=== PATIENT | female | born 1960 | race Caucasian/White ===

== ENCOUNTER → 2017-08-21 | Outpatient (CLI) | payer OTHER ==
[2017-08-21 11:03] LABS: THYROID STIMULATING HORMONE < 0.015 uIU/mL (0.465-4.680)
== END ==
LOC: COL.LAB 09:22
PROVIDERS: Otolaryngology
DX: E05.90 Thyrotoxicosis, unspecified without thyrotoxic crisis or storm (principal)

== ENCOUNTER → 2017-09-28 | Outpatient (CLI) | payer OTHER ==
[2017-09-28 10:14] LABS: THYROID STIMULATING HORMONE < 0.015 uIU/mL (0.465-4.680)
== END ==
LOC: COL.LAB 08:51
PROVIDERS: Otolaryngology
DX: E05.00 Thyrotoxicosis with diffuse goiter without thyrotoxic crisis or storm (principal)

== ENCOUNTER → 2017-10-15 | Outpatient (REF) ==
[2017-10-15 17:01] LABS: ALBUMIN 4.2 gm/dL (3.5-5.0); PHOSPHOROUS 4.3 mg/dL (2.5-4.5)
== END ==
LOC: ZLAB.WCH 16:46
PROVIDERS: Otolaryngology
DX: Z01.89 Encounter for other specified special examinations (principal)

== ENCOUNTER → 2017-10-16 | Outpatient (REF) ==
[2017-10-16 15:31] LABS: ALBUMIN 3.8 gm/dL (3.5-5.0); PHOSPHOROUS 3.3 mg/dL (2.5-4.5)
== END ==
LOC: ZMSC 15:13
DX: Z01.89 Encounter for other specified special examinations (principal)

== ENCOUNTER → 2017-10-16 | Outpatient (REF) ==
[2017-10-16 06:17] LABS: ALBUMIN 3.6 gm/dL (3.5-5.0); CALCIUM 9.2 mg/dL (8.4-10.2); PHOSPHOROUS 4.4 mg/dL (2.5-4.5)
== END ==
LOC: ZMSC 06:02
PROVIDERS: Otolaryngology
DX: Z01.89 Encounter for other specified special examinations (principal)

== ENCOUNTER → 2017-11-13 | Outpatient (CLI) | payer OTHER | LOC: COL.LAB 08:13 | DX: E05.00 Thyrotoxicosis with diffuse goiter without thyrotoxic crisis or storm (principal) ==

== ENCOUNTER → 2017-12-11 | Outpatient (CLI) | payer OTHER | LOC: COL.LAB 07:57 | DX: E05.00 Thyrotoxicosis with diffuse goiter without thyrotoxic crisis or storm (principal) ==

== ENCOUNTER → 2018-04-14 | Outpatient (CLI) | payer OTHER ==
[2018-04-14 09:36] LABS: ALBUMIN 4.3 gm/dL (3.5-5.0); CALCIUM 9.6 mg/dL (8.4-10.2)
[2018-04-14 10:07] LABS: THYROID STIMULATING HORMONE 13.9 uIU/mL (0.465-4.680)
== END ==
LOC: COL.LAB 08:42
PROVIDERS: Otolaryngology
DX: E05.00 Thyrotoxicosis with diffuse goiter without thyrotoxic crisis or storm (principal)

== ENCOUNTER → 2018-05-17 | Outpatient (CLI) | payer OTHER | LOC: COL.LAB 08:38 | DX: E05.00 Thyrotoxicosis with diffuse goiter without thyrotoxic crisis or storm (principal) ==

== ENCOUNTER → 2019-04-05 | Outpatient (CLI) | payer OTHER | LOC: COL.LAB 08:34 | DX: E05.00 Thyrotoxicosis with diffuse goiter without thyrotoxic crisis or storm (principal) ==

== ENCOUNTER → 2020-04-26 | Outpatient (CLI) | payer OTHER | LOC: COL.LAB 09:56 | DX: E05.00 Thyrotoxicosis with diffuse goiter without thyrotoxic crisis or storm (principal) ==

== ENCOUNTER → 2021-02-11 | Outpatient (CLI) | payer OTHER | LOC: COL.LAB 09:54 | DX: E05.00 Thyrotoxicosis with diffuse goiter without thyrotoxic crisis or storm (principal) ==